=== PATIENT | male | born 1980 | race Caucasian/White ===

== ENCOUNTER 2018-09-13 18:22 | Observation (INO) | payer BC, MEDICAID, OTHER ==
[2018-09-13] MEDS ORDERED: Sodium Chloride 0.9% 1,000 ML IV ONE (18:53)
[2018-09-13 19:39] LABS: BICARBONATE,ARTERIAL 27.6 mm/L (22.0-26.0); O2 DELIVERY DEVICE ROOM AIR; O2 SATURATION ARTERIAL 94 % (95-98); PCO2 ARTERIAL 38 mm/Hg0 (35-45); PO2 ARTERIAL 68 mm/Hg (80-100)
--- NOTE | 2018-09-13 19:52 | EDM.PDOC ---
ED HPI GENERAL MEDICAL PROBLEM - General Chief Complaint: Neurological Problem Stated Complaint: lethargic Time Seen by Provider: 09/13/18 18:37 Source of Information: Reports: Patient, EMS, Family History Limitations: Reports: Altered Mental Status - History of Present Illness INITIAL COMMENTS - FREE TEXT/NARRATIVE: Jaswant is a 37 year old male with PMH of type II DM, esophagel varices, depression, and ETOH addiction, who presents to the ED via [facility] with c/o AMS. Girlfriend reports he was recently discharged from [facility] in [place] for ETOH abuse on . She reports the past 3 days, other than today, he has drank 1.75 L whiskey. She reports he has been doing this for some time now. She reports that today he did not have anything to drink per her knowledge. Report throughout the morning he was more with it, able to tell them his insulin dosing, and then this evening he just became more lethargic and not acting like himself so they called EMS. They report he was eating and drinking fine today and had no other symptoms. EMS reports upon arrival he was sitting up in a chair. Blood sugar was elevated in upper 300's. Girlfriend reports he has had two doses of insulin today, but unsure on how many units. Girlfriend reports no drug use. They have been present with him throughout the evening. Deny any seizure activity. Upon arrival to ED, patient does arouse to voice. When asked questions he answers yes to every question and then goes back to sleep. GCS 13. He is maintaining O2 sats on RA. VSS. Unable to obtain ROS. Onset: Today, Gradual Associated Symptoms: Reports: Weakness. Denies: Cough, Diaphoresis, Fever/ Chills, Nausea/Vomiting - Related Data Allergies Allergy/AdvReac Type Severity Reaction Status Date / Time No Known Allergies Allergy Verified 09/13/18 19:33 Home Meds: Home Meds FLUoxetine HCl [Fluoxetine HCl] 20 mg PO DAILY 09/13/18 [History] Insulin Glargine,Hum.Rec.Anlog [Basaglar Kwikpen U-100] 0 unit SQ ASDIRECTED [History] Insulin Lispro [Humalog Kwikpen U-100] 0 unit SQ ASDIRECTED 09/13/18 [History] Levomefolate/B6/B12/Algal Oil [l-Methylfolate Ca P-5-P Me-Cbl] 1 tab PO BID [History] Magnesium Chloride [Mag-64] 128 mg PO BID 09/13/18 [History] Multivit-Min/Iron Fum/Folic AC [Mpovj-Yyyhtgs-Tdhnvhlv Tablet] 1 tab PO DAILY [History] Naltrexone 50 mg PO DAILY 09/13/18 [History] Pantoprazole Sodium [Protonix] 40 mg PO DAILY 09/13/18 [History] QUEtiapine Fumarate [Seroquel] 300 mg PO BEDTIME 09/13/18 [History] Ranitidine HCl [Zantac 75] 75 mg PO DAILY PRN 09/13/18 [History] Thiamine [Vitamin B-1] 100 mg PO BID 09/13/18 [History] atorvaSTATin Calcium [Atorvastatin Calcium] 20 mg PO BEDTIME 09/13/18 [History] guanFACINE 1 mg PO BEDTIME 09/13/18 [History] metFORMIN [Glucophage] 500 mg PO BID 09/13/18 [History] Past Medical History - Past Health History Medical/Surgical History: Denies Medical/Surgical History Cardiovascular History: Reports: Hypertension Other Cardiovascular History: not currently taking any meds for HTN Gastrointestinal History: Reports: GERD Genitourinary History: Reports: Chronic Renal Insuffiency Musculoskeletal History: Reports: Fracture Neurological History: Reports: Concussion, Seizure Other Neuro History: Withdrawal seizures Psychiatric History: Reports: Addiction, Depression, Suicide Attempt, Suicidal Ideation Other Psychiatric History: ETOH addiction Endocrine/Metabolic History: Reports: Diabetes, Type II Other Endocrine/Metabolic History: States he was on insulin for a while, stopped taking insulin in April of 2018 and has been watching his diet closely since Oncologic (Cancer) History: Reports: None - Infectious Disease History Infectious Disease History: Reports: Chicken Pox - Past Surgical History Cardiovascular Surgical History: Reports: None GI Surgical History: Reports: Appendectomy, Cholecystectomy Endocrine Surgical History: Reports: None Neurological Surgical History: Reports: None Musculoskeletal Surgical History: Reports: Shoulder Surgery, Other (See Below) Other Musculoskeletal Surgeries/Procedures:: Right foot and left shoulder Social & Family History - Family History Family Medical History: Noncontributory - Tobacco Use Smoking Status *Q: Unknown Ever Smoked - Caffeine Use Caffeine Use: Reports: Tea - Alcohol Use Days Per Week of Alcohol Use: 4 Number of Drinks Per Day: 1 Total Drinks Per Week: 4 Date of Last Drink: 09/12/18 Time of Last Drink: 22:30 - Recreational Drug Use Recreational Drug Use: No ED ROS GENERAL - Review of Systems Review Of Systems: Unable To Obtain - Physical Exam Exam: See Below Exam Limited By: Altered Mental Status General Appearance: WD/WN, No Apparent Distress, Obtunded Eye Exam: Bilateral Eye: EOMI, Normal Fundi, Normal Inspection, PERRL Ears: Normal External Exam, Normal Canal, Hearing Grossly Normal, Normal TMs Nose: Normal Inspection, Normal Mucosa, No Blood Throat/Mouth: Other (dry mucous membranes and lips) Head Exam: Atraumatic, Normocephalic Neck: Normal Inspection, Supple, Non-Tender Respiratory/Chest: No Respiratory Distress, Lungs Clear, Normal Breath Sounds, No Accessory Muscle Use, Chest Non-Tender Cardiovascular: Normal Peripheral Pulses, Regular Rate, Rhythm, No Edema, No Gallop, No JVD, No Murmur, No Rub GI/Abdominal: Normal Bowel Sounds, Soft, Non-Tender, No Organomegaly, No Distention, No Abnormal Bruit, No Mass Neuro Exam (Abbreviated): Unresponsive Back Exam: Normal Inspection Extremities: Normal Inspection, No Pedal Edema, Normal Capillary Refill Skin Exam: Warm, Dry, Intact, Rash (maculopapular rash to chest and arms) Course - Vital Signs Last Recorded V/S: Last Vital Signs Temp 98.2 F 09/14/18 00:00 Pulse 88 09/14/18 00:00 Resp 18 09/14/18 00:00 BP 142/66 H 09/14/18 00:00 Pulse Ox 98 09/14/18 00:00 - Orders/Labs/Meds Orders: Active Orders 24 hr Category Date Time Status Chest 1V Frontal [CR] Stat Exams 09/13/18 18:55 Taken Head wo Cont [CT] Stat Exams 09/13/18 18:55 Taken ETHANOL (MEDICAL) [REF] Stat Lab 09/13/18 19:08 Received Medication Orders Acetaminophen (Tylenol) 650 mg PO Q4H PRN PRN Reason: Pain (Mild 1-3)/fever Enoxaparin Sodium (Lovenox) 40 mg SUBCUT Q24H [facility] Last Admin: 09/13/18 21:03 Dose: 40 mg Fluoxetine HCl (Prozac) 20 mg PO DAILY [facility] Sodium Chloride (Normal Saline) 1,000 mls @ 125 mls/hr IV ASDIRECTED GRAEME Last Admin: 09/13/18 21:07 Dose: 125 mls/hr Insulin Aspart (Novolog) 0 unit SUBCUT WITHMEALSANDBED GRAEME; Protocol Non-Formulary Medication (Guanfacine [Guanfacine]) 1 mg PO BEDTIME GRAEME Non-Formulary Medication (Quetiapine Fumarate [Seroquel]) 300 mg PO BEDTIME GRAEME Pantoprazole Sodium (Protonix Iv) 40 mg IVPUSH Q24H GRAEME Last Admin: 09/13/18 21:01 Dose: 40 mg Thiamine HCl (Vitamin B-1) 100 mg PO BID [facility] Labs: Laboratory Tests 09/13/18 09/13/18 09/13/18 Range/Units 18:33 18:33 18:33 WBC 5.5 (5.0-10.0) 10^3/uL RBC 4.47 L (4.50-6.00) 10^6/uL Hgb 13.3 L (14.0-18.0) g/dL Hct 37.4 L (40.0-54.0) % MCV 83.7 (82.0-94.0) fL MCH 29.8 (27.0-32.0) pg MCHC 35.6 (33.0-38.0) g/dL RDW Coeff of Jarret 14.5 (11.0-15.0) % Plt Count 221 (150-400) 10^3/uL Neut % (Auto) 46.1 (35-85) % Lymph % (Auto) 43.0 (10-55) % [place] % (Auto) 7.7 (0-16) % Eos % (Auto) 2.7 (0-5) % Baso % (Auto) 0.5 (0-3) % Neut # (Auto) 2.53 (1.80-7.00) 10^3/uL Lymph # (Auto) 2.36 (1.00-4.80) 10^3/uL [place] # (Auto) 0.42 (0.00-0.80) 10^3/uL Eos # (Auto) 0.15 (0.00-0.45) 10^3/uL Baso # (Auto) 0.03 10^3/uL ABG pH (7.35-7.45) ABG pCO2 (35-45) mm/Hg0 ABG pO2 (80-100) mm/Hg ABG HCO3 (22.0-26.0) mm/L ABG O2 Saturation (95-98) % ABG Base Excess (-2.0-3.0) O2 Delivery Device Sodium 139 (136-145) mEq/L Potassium 3.8 (3.5-5.0) mEq/L Chloride 100 (98-106) mEq/L Carbon Dioxide 26 (21-32) mmol/L BUN 12 (7-18) mg/dL Creatinine 1.4 H (0.7-1.3) mg/dL Est Cr Clr Drug Dosing 80.06 mL/min Estimated GFR (MDRD) 57 L (>=60) mL/min Glucose 283 H (75-99) mg/dL Calcium 8.2 L (8.4-10.1) mg/dL Total Bilirubin 0.3 (0.0-1.0) mg/dL AST 62 H (15-37) U/L ALT 89 H (12-78) U/L Alkaline Phosphatase 128 H (46-116) U/L C-Reactive Protein 0.4 (0.2-0.8) mg/dL Total Protein 7.2 (6.4-8.2) g/dL Albumin 3.6 (3.4-5.0) g/dL Urine Color Yellow (YELLOW) Urine Appearance Clear (CLEAR) Urine pH 5.5 (4.5-8.0) Ur Specific [place] 1.020 (1.003-1.020) Urine Protein Negative (NEGATIVE) mg/dL Urine Glucose (UA) 500 H (NEGATIVE) mg/dL Urine Ketones Negative (NEGATIVE) mg/dL Urine Occult Blood Negative (NEGATIVE) Urine Nitrite Negative (NEGATIVE) Urine Bilirubin Negative (NEGATIVE) Urine Urobilinogen 0.2 (0.2-1.0) EU/dL Ur Leukocyte Esterase Negative (NEGATIVE) Urine RBC Not seen (0-5) /HPF Urine WBC Not seen (0-5) /HPF Urine Opiates Screen (NEGATIVE) Ur Oxycodone Screen (NEGATIVE) Urine Methadone Screen (NEGATIVE) Ur Barbiturates Screen (NEGATIVE) U Tricyclic Antidepress (NEGATIVE) Ur Phencyclidine Scrn (NEGATIVE) Ur Amphetamine Screen (NEGATIVE) U Methamphetamines Scrn (NEGATIVE) Urine MDMA Screen (NEGATIVE) U Benzodiazepines Scrn (NEGATIVE) Urine Cocaine Screen (NEGATIVE) U Marijuana (THC) Screen (NEGATIVE) 09/13/18 09/13/18 Range/Units 18:41 19:17 WBC (5.0-10.0) 10^3/uL RBC (4.50-6.00) 10^6/uL Hgb (14.0-18.0) g/dL Hct (40.0-54.0) % MCV (82.0-94.0) fL MCH (27.0-32.0) pg MCHC (33.0-38.0) g/dL RDW Coeff of Jarret (11.0-15.0) % Plt Count (150-400) 10^3/uL Neut % (Auto) (35-85) % Lymph % (Auto) (10-55) % [place] % (Auto) (0-16) % Eos % (Auto) (0-5) % Baso % (Auto) (0-3) % Neut # (Auto) (1.80-7.00) 10^3/uL Lymph # (Auto) (1.00-4.80) 10^3/uL [place] # (Auto) (0.00-0.80) 10^3/uL Eos # (Auto) (0.00-0.45) 10^3/uL Baso # (Auto) 10^3/uL ABG pH 7.47 H (7.35-7.45) ABG pCO2 38 (35-45) mm/Hg0 ABG pO2 68 L (80-100) mm/Hg ABG HCO3 27.6 H (22.0-26.0) mm/L ABG O2 Saturation 94 L (95-98) % ABG Base Excess 4.0 H (-2.0-3.0) O2 Delivery Device Room air Sodium (136-145) mEq/L Potassium (3.5-5.0) mEq/L Chloride (98-106) mEq/L Carbon Dioxide (21-32) mmol/L BUN (7-18) mg/dL Creatinine (0.7-1.3) mg/dL Est Cr Clr Drug Dosing mL/min Estimated GFR (MDRD) (>=60) mL/min Glucose (75-99) mg/dL Calcium (8.4-10.1) mg/dL Total Bilirubin (0.0-1.0) mg/dL AST (15-37) U/L ALT (12-78) U/L Alkaline Phosphatase (46-116) U/L C-Reactive Protein (0.2-0.8) mg/dL Total Protein (6.4-8.2) g/dL Albumin (3.4-5.0) g/dL Urine Color (YELLOW) Urine Appearance (CLEAR) Urine pH (4.5-8.0) Ur Specific [place] (1.003-1.020) Urine Protein (NEGATIVE) mg/dL Urine Glucose (UA) (NEGATIVE) mg/dL Urine Ketones (NEGATIVE) mg/dL Urine Occult Blood (NEGATIVE) Urine Nitrite (NEGATIVE) Urine Bilirubin (NEGATIVE) Urine Urobilinogen (0.2-1.0) EU/dL Ur Leukocyte Esterase (NEGATIVE) Urine RBC (0-5) /HPF Urine WBC (0-5) /HPF Urine Opiates Screen Negative (NEGATIVE) Ur Oxycodone Screen Negative (NEGATIVE) Urine Methadone Screen Negative (NEGATIVE) Ur Barbiturates Screen Negative (NEGATIVE) U Tricyclic Antidepress Negative (NEGATIVE) Ur Phencyclidine Scrn Negative (NEGATIVE) Ur Amphetamine Screen Negative (NEGATIVE) U Methamphetamines Scrn Negative (NEGATIVE) Urine MDMA Screen Negative (NEGATIVE) U Benzodiazepines Scrn Negative (NEGATIVE) Urine Cocaine Screen Negative (NEGATIVE) U Marijuana (THC) Screen Negative (NEGATIVE) Meds: Medications Generic Name Dose Route Start Last Admin Trade Name Freq PRN Reason Stop Dose Admin Acetaminophen 650 mg 09/13/18 20:49 Tylenol PO Q4H PRN Pain (Mild 1-3)/fever Enoxaparin Sodium 40 mg 09/13/18 21:00 09/13/18 21:03 Lovenox SUBCUT 40 mg Q24H GRAEME Administration Fluoxetine HCl 20 mg 09/14/18 08:00 Prozac PO DAILY GRAEME Sodium Chloride 1,000 mls @ 125 mls/hr 09/13/18 20:49 09/13/18 21:07 Normal Saline IV 125 mls/hr ASDIRECTED GRAEME Administration Insulin Aspart 0 unit 09/14/18 08:00 Novolog SUBCUT WITHMEALSANDBED GRAEME Protocol Non-Formulary Medication 1 mg 09/14/18 20:00 Guanfacine [Guanfacine] PO BEDTIME GRAEME Non-Formulary Medication 300 mg 09/14/18 20:00 Quetiapine Fumarate [Seroquel] PO BEDTIME GRAEME Pantoprazole Sodium 40 mg 09/13/18 21:00 09/13/18 21:01 Protonix Iv IVPUSH 40 mg Q24H GRAEME Administration Thiamine HCl 100 mg 09/14/18 08:00 Vitamin B-1 PO BID GRAEME Discontinued Medications Generic Name Dose Route Start Last Admin Trade Name Heribertoq PRN Reason Stop Dose Admin Sodium Chloride 1,000 mls @ 999 mls/hr 09/13/18 18:53 09/13/18 19:37 Normal Saline IV 09/13/18 19:53 999 mls/hr .BOLUS ONE Administration Thiamine HCl 100 mg/ Sodium 101 mls @ 202 mls/hr 09/13/18 20:49 09/13/18 21: 01 Chloride IV 09/13/18 20:50 202 mls/hr ONETIME ONE Administration - Re-Assessments/Exams Free Text/Narrative Re-Assessment/Exam: Discussed lab, xray, and CT findings with patient's girlfriend. Departure - Departure Time of Disposition: 19:52 Disposition: Refer to Observation Condition: Fair Clinical Impression: Altered mental status Qualifiers: Altered mental status type: somnolence Qualified Code(s): R40.0 - Somnolence Alcoholic intoxication Qualifiers: Complication of substance-induced condition: with delirium Qualified Code(s): F10.921 - Alcohol use, unspecified with intoxication delirium Type 2 diabetes mellitus Qualifiers: Diabetes mellitus intermodal truck driver insulin use: with intermodal truck driver use Diabetes mellitus complication status: with hyperglycemia Qualified Code(s): E11.65 - Type 2 diabetes mellitus with hyperglycemia - Discharge Information *PRESCRIPTION DRUG MONITORING PROGRAM REVIEWED*: Not Applicable *COPY OF PRESCRIPTION DRUG MONITORING REPORT IN PATIENT MILLER: Not Applicable - Problem List & Annotations (1) Altered mental status SNOMED Code(s): 710239869 Code(s): R41.82 - ALTERED MENTAL STATUS, UNSPECIFIED Status: Acute Current Visit: Yes Qualifiers: Altered mental status type: somnolence Qualified Code(s): R40.0 - Somnolence (2) Alcoholic intoxication SNOMED Code(s): 68494828 Code(s): F10.929 - ALCOHOL USE, UNSPECIFIED WITH INTOXICATION, UNSPECIFIED Status: Acute Current Visit: Yes Qualifiers: Complication of substance-induced condition: with delirium Qualified Code(s ): F10.921 - Alcohol use, unspecified with intoxication delirium (3) Type 2 diabetes mellitus SNOMED Code(s): 86440038 Code(s): E11.9 - TYPE 2 DIABETES MELLITUS WITHOUT COMPLICATIONS Status: Acute Current Visit: Yes Qualifiers: Diabetes mellitus residential insulin use: with residential use Diabetes mellitus complication status: with hyperglycemia Qualified Code(s): E11.65 - Type 2 diabetes mellitus with hyperglycemia; Z79.4 - alf (current) use of insulin (4) Renal insufficiency SNOMED Code(s): 093129304, 179174326 Code(s): N28.9 - DISORDER OF KIDNEY AND URETER, UNSPECIFIED Status: Acute Current Visit: No - Problem List Review Problem List Initiated/Reviewed/Updated: Yes - My Orders Last 24 Hours: My Active Orders 09/13/18 18:55 Chest 1V Frontal [CR] Stat Head wo Cont [CT] Stat 09/13/18 19:08 ETHANOL (MEDICAL) [REF] Stat - Assessment/Plan Admission H&P: Please use this note as an admission H&P Last 24 Hours: My Active Orders 09/13/18 18:55 Chest 1V Frontal [CR] Stat Head wo Cont [CT] Stat 09/13/18 19:08 ETHANOL (MEDICAL) [REF] Stat Plan: Admit to observation with cardiac monitoring. Do not have ETOH level back, as this is a send out lab for us. I suspect patient is intoxicated. He does have strong odor of alcohol on him. He does arouse to verbal stimuli and answers yes/ no to questions. Girlfriend reports he drinks 1.75 L whiskey daily. Creatinine elevated to 1.4. Glucose is 283. ABG shows no acidosis, elevated bicarb. Urine negative for ketones. Liver enzymes are elevated. AST 62. ALT 89. UA negative except 500 glucose. Drug screen is negative. Head CT and CXR negative for acute processes. Will give one dose thiamine. Start IVF. I anticipate patients mental status will improve once he is no longer intoxicated. Patient will likely need to return for continued ETOH treatment once sober. Patient's girlfriend voiced understanding. Patient transferred to floor in satisfactory condition.
[2018-09-13] MEDS ORDERED: Acetaminophen 325 MG Tab PO PRN (20:49)
[2018-09-13] MEDS ORDERED: Thiamine 100 MG in Sodium Chloride 0.9% 100 ML IV ONE (20:49)
[2018-09-13] MEDS: Pantoprazole 40 MG Vial IVPUSH SCH (21:01)
[2018-09-13] MEDS: Enoxaparin 40 MG/0.4 ML Syringe SUBCUT SCH (21:03)
[2018-09-13] MEDS: Sodium Chloride 0.9% 1,000 ML IV SCH (21:07)
[2018-09-14] MEDS: Sodium Chloride 0.9% 1,000 ML IV SCH ×3 (04:10→21:13)
[2018-09-14] MEDS: THIAMINE 100 MG PO SCH ×2 (08:49→21:06)
[2018-09-14] MEDS: FLUOXETINE 20 MG PO SCH (08:50)
[2018-09-14] MEDS: Insulin Aspart 100 Units/ML 3 ML Pen SUBCUT SCH ×4 (08:50→21:10)
[2018-09-14] MEDS ORDERED: Nicotine 14 MG/24 Hr Patch TRDERM ONE (15:51)
[2018-09-14] MEDS: LORazepam 0.5 MG Tab PO PRN (18:13)
--- NOTE | 2018-09-14 19:30 | PCM.PN ---
- General Info Date of Service: 09/14/18 Admission Dx/Problem (Free Text): Altered Mental Status Alcohol Intoxication Functional Status: Reports: Pain Controlled, Ambulating. Denies: Tolerating Diet - Review of Systems General: Denies: Fever, Weakness, Fatigue, Malaise HEENT: Reports: No Symptoms Pulmonary: Denies: Shortness of Breath, Cough Cardiovascular: Denies: Chest Pain, Edema, Lightheadedness Gastrointestinal: Reports: Decreased Appetite, Nausea. Denies: Abdominal Pain, Vomiting Genitourinary: Reports: No Symptoms Musculoskeletal: Reports: No Symptoms Skin: Reports: No Symptoms Neurological: Denies: Confusion, Headache Psychiatric: Reports: Anxiety - Patient Data Vitals - Most Recent: Last Vital Signs Temp 99 F 09/14/18 16:00 Pulse 98 09/14/18 16:00 Resp 20 09/14/18 16:00 BP 152/98 H 09/14/18 16:00 Pulse Ox 97 09/14/18 16:00 Weight - Most Recent: 240 lb I&O - Last 24 Hours: Intake & Output 09/14/18 09/14/18 09/14/18 06:59 14:59 22:59 Intake Total 881 1000 Balance 881 1000 Lab Results Last 24 Hours: Laboratory Results - last 24 hr 09/13/18 09/14/18 09/14/18 Range/Units 19:17 04:08 06:45 WBC 8.1 (5.0-10.0) 10^3/uL RBC 4.33 L (4.50-6.00) 10^6/uL Hgb 12.8 L (14.0-18.0) g/dL Hct 37.1 L (40.0-54.0) % MCV 85.7 (82.0-94.0) fL MCH 29.6 (27.0-32.0) pg MCHC 34.5 (33.0-38.0) g/dL RDW Coeff of Jarret 14.4 (11.0-15.0) % Plt Count 241 (150-400) 10^3/uL Neut % (Auto) 71.1 (35-85) % Lymph % (Auto) 20.8 (10-55) % [place] % (Auto) 6.0 (0-16) % Eos % (Auto) 1.7 (0-5) % Baso % (Auto) 0.4 (0-3) % Neut # (Auto) 5.76 (1.80-7.00) 10^3/uL Lymph # (Auto) 1.69 (1.00-4.80) 10^3/uL [place] # (Auto) 0.49 (0.00-0.80) 10^3/uL Eos # (Auto) 0.14 (0.00-0.45) 10^3/uL Baso # (Auto) 0.03 10^3/uL ABG pH 7.47 H (7.35-7.45) ABG pCO2 38 (35-45) mm/Hg0 ABG pO2 68 L (80-100) mm/Hg ABG HCO3 27.6 H (22.0-26.0) mm/L ABG O2 Saturation 94 L (95-98) % ABG Base Excess 4.0 H (-2.0-3.0) O2 Delivery Device Room air Sodium (136-145) mEq/L Potassium (3.5-5.0) mEq/L Chloride (98-106) mEq/L Carbon Dioxide (21-32) mmol/L BUN (7-18) mg/dL Creatinine (0.7-1.3) mg/dL Est Cr Clr Drug Dosing mL/min Estimated GFR (MDRD) (>=60) mL/min Glucose (75-99) mg/dL POC Glucose 160 H (75-105) mg/dl Calcium (8.4-10.1) mg/dL Total Bilirubin (0.0-1.0) mg/dL AST (15-37) U/L ALT (12-78) U/L Alkaline Phosphatase (46-116) U/L Total Protein (6.4-8.2) g/dL Albumin (3.4-5.0) g/dL 09/14/18 09/14/18 09/14/18 Range/Units 06:45 07:23 12:34 WBC (5.0-10.0) 10^3/uL RBC (4.50-6.00) 10^6/uL Hgb (14.0-18.0) g/dL Hct (40.0-54.0) % MCV (82.0-94.0) fL MCH (27.0-32.0) pg MCHC (33.0-38.0) g/dL RDW Coeff of Jarret (11.0-15.0) % Plt Count (150-400) 10^3/uL Neut % (Auto) (35-85) % Lymph % (Auto) (10-55) % [place] % (Auto) (0-16) % Eos % (Auto) (0-5) % Baso % (Auto) (0-3) % Neut # (Auto) (1.80-7.00) 10^3/uL Lymph # (Auto) (1.00-4.80) 10^3/uL [place] # (Auto) (0.00-0.80) 10^3/uL Eos # (Auto) (0.00-0.45) 10^3/uL Baso # (Auto) 10^3/uL ABG pH (7.35-7.45) ABG pCO2 (35-45) mm/Hg0 ABG pO2 (80-100) mm/Hg ABG HCO3 (22.0-26.0) mm/L ABG O2 Saturation (95-98) % ABG Base Excess (-2.0-3.0) O2 Delivery Device Sodium 139 (136-145) mEq/L Potassium 3.9 (3.5-5.0) mEq/L Chloride 103 (98-106) mEq/L Carbon Dioxide 26 (21-32) mmol/L BUN 10 (7-18) mg/dL Creatinine 2.2 H D (0.7-1.3) mg/dL Est Cr Clr Drug Dosing 53.97 mL/min Estimated GFR (MDRD) 34 L (>=60) mL/min Glucose 185 H D (75-99) mg/dL POC Glucose 171 H 197 H (75-105) mg/dl Calcium 7.9 L (8.4-10.1) mg/dL Total Bilirubin 0.4 (0.0-1.0) mg/dL AST 44 H (15-37) U/L ALT 76 (12-78) U/L Alkaline Phosphatase 116 (46-116) U/L Total Protein 6.7 (6.4-8.2) g/dL Albumin 3.3 L (3.4-5.0) g/dL 10/22/18 Range/Units 17:28 WBC (5.0-10.0) 10^3/uL RBC (4.50-6.00) 10^6/uL Hgb (14.0-18.0) g/dL Hct (40.0-54.0) % MCV (82.0-94.0) fL MCH (27.0-32.0) pg MCHC (33.0-38.0) g/dL RDW Coeff of Jarret (11.0-15.0) % Plt Count (150-400) 10^3/uL Neut % (Auto) (35-85) % Lymph % (Auto) (10-55) % [place] % (Auto) (0-16) % Eos % (Auto) (0-5) % Baso % (Auto) (0-3) % Neut # (Auto) (1.80-7.00) 10^3/uL Lymph # (Auto) (1.00-4.80) 10^3/uL [place] # (Auto) (0.00-0.80) 10^3/uL Eos # (Auto) (0.00-0.45) 10^3/uL Baso # (Auto) 10^3/uL ABG pH (7.35-7.45) ABG pCO2 (35-45) mm/Hg0 ABG pO2 (80-100) mm/Hg ABG HCO3 (22.0-26.0) mm/L ABG O2 Saturation (95-98) % ABG Base Excess (-2.0-3.0) O2 Delivery Device Sodium (136-145) mEq/L Potassium (3.5-5.0) mEq/L Chloride (98-106) mEq/L Carbon Dioxide (21-32) mmol/L BUN (7-18) mg/dL Creatinine (0.7-1.3) mg/dL Est Cr Clr Drug Dosing mL/min Estimated GFR (MDRD) (>=60) mL/min Glucose (75-99) mg/dL POC Glucose 170 H (75-105) mg/dl Calcium (8.4-10.1) mg/dL Total Bilirubin (0.0-1.0) mg/dL AST (15-37) U/L ALT (12-78) U/L Alkaline Phosphatase (46-116) U/L Total Protein (6.4-8.2) g/dL Albumin (3.4-5.0) g/dL Med Orders - Current: Current Medications Acetaminophen (Tylenol) 650 mg PO Q4H PRN PRN Reason: Pain (Mild 1-3)/fever Enoxaparin Sodium (Lovenox) 40 mg SUBCUT Q24H [facility] Last Admin: 09/13/18 21:03 Dose: 40 mg Fluoxetine HCl (Prozac) 20 mg PO DAILY [facility] Last Admin: 09/14/18 08:50 Dose: 20 mg Sodium Chloride (Normal Saline) 1,000 mls @ 125 mls/hr IV ASDIRECTED [facility] Last Admin: 09/14/18 14:17 Dose: 125 mls/hr Insulin Aspart (Novolog) 0 unit SUBCUT WITHMEALSANDBED [facility]; Protocol Last Admin: 09/14/18 18:12 Dose: 3 units Lorazepam (Ativan) 1 mg PO Q8H PRN PRN Reason: Agitation Last Admin: 09/14/18 18:13 Dose: 1 mg Ptom Guanfacine ([Guanfacine] 1 Mg) 1 mg PO BEDTIME [facility] Ptom Quetiapine Fumarate [Seroquel] 300 Mg 300 mg PO BEDTIME [facility] Pantoprazole Sodium (Protonix Iv) 40 mg IVPUSH Q24H [facility] Last Admin: 09/13/18 21:01 Dose: 40 mg Thiamine HCl (Vitamin B-1) 100 mg PO BID [facility] Last Admin: 09/14/18 08:49 Dose: 100 mg Discontinued Medications Sodium Chloride (Normal Saline) 1,000 mls @ 999 mls/hr IV .BOLUS ONE Stop: 09/13/18 19:53 Last Admin: 09/13/18 19:37 Dose: 999 mls/hr Thiamine HCl 100 mg/ Sodium (Chloride) 101 mls @ 202 mls/hr IV ONETIME ONE Stop: 09/13/18 20:50 Last Admin: 09/13/18 21:01 Dose: 202 mls/hr Nicotine (Habitrol) 14 mg TRDERM ONETIME ONE Stop: 09/14/18 15:52 Last Admin: 09/14/18 16:45 Dose: 14 mg - Exam General: Alert, Oriented, Cooperative HEENT: Mucous Membr. Moist/[place] Neck: Supple Lungs: Clear to Auscultation, Normal Respiratory Effort Cardiovascular: Regular Rate, Regular Rhythm GI/Abdominal Exam: Normal Bowel Sounds, Soft, Non-Tender Extremities: Normal Inspection, No Pedal Edema Skin: Warm, Dry Neurological: No New Focal Deficit Psy/Mental Status: Anxious - Problem List & Annotations (1) Alcoholic intoxication SNOMED Code(s): 49391653 Code(s): F10.929 - ALCOHOL USE, UNSPECIFIED WITH INTOXICATION, UNSPECIFIED Status: Acute Priority: High Current Visit: Yes Qualifiers: Complication of substance-induced condition: with delirium Qualified Code(s ): F10.921 - Alcohol use, unspecified with intoxication delirium (2) Altered mental status SNOMED Code(s): 680509724 Code(s): R41.82 - ALTERED MENTAL STATUS, UNSPECIFIED Status: Acute Priority: High Current Visit: Yes Qualifiers: Altered mental status type: somnolence Qualified Code(s): R40.0 - Somnolence (3) Type 2 diabetes mellitus SNOMED Code(s): 40166331 Code(s): E11.9 - TYPE 2 DIABETES MELLITUS WITHOUT COMPLICATIONS Status: Acute Priority: High Current Visit: Yes Qualifiers: Diabetes mellitus senior care insulin use: with terminal worker use Diabetes mellitus complication status: with hyperglycemia Qualified Code(s): E11.65 - Type 2 diabetes mellitus with hyperglycemia; Z79.4 - manager long term care (current) use of insulin - Problem List Review Problem List Initiated/Reviewed/Updated: Yes - My Orders Last 24 Hours: My Active Orders 09/14/18 17:47 LORazepam [Ativan] 1 mg PO Q8H PRN 09/15/18 05:11 BASIC METABOLIC PANEL,BMP [CHEM] AM - Assessment Assessment:: Altered Mental Status Alcohol Intoxication - Plan Plan:: Patient alert, oriented and cooperative this am. Denies any pain. Admits to no appetite, hasn't been able to eat as of late. Does admit that after leaving treatment and resuming use of alcohol, has not been able to eat. He admits to intermittent nausea. No vomiting. Blood sugars running lower as a result, no insulin has been given today. Patient does discuss his need for recovery, well aware of it altering his life at this point. Has attended AA in the past. Does feel anxious. Creatinine today increased to 2.2 despite IV fluids overnight. Will continue IV fluids. Advised patient need to rehydrate/increase oral intake , use Zofran as needed for this. Repeat labs in am. Use Ativan as needed for DTs, anxiety. If labs improve, will discharge home in am.
[2018-09-14] MEDS ORDERED: QUETIAPINE FUMARATE 300 MG PO SCH (20:00)
[2018-09-14] MEDS ORDERED: GUANFACINE 1 MG PO SCH (20:00)
[2018-09-14] MEDS: Enoxaparin 40 MG/0.4 ML Syringe SUBCUT SCH (21:06)
[2018-09-14] MEDS: Pantoprazole 40 MG Vial IVPUSH SCH (21:10)
[2018-09-15] MEDS: Sodium Chloride 0.9% 1,000 ML IV SCH (05:20)
[2018-09-15 07:42] VITALS: BP 139/96
[2018-09-15] MEDS: THIAMINE 100 MG PO SCH (07:53)
[2018-09-15] MEDS: FLUOXETINE 20 MG PO SCH (07:53)
[2018-09-15] MEDS: LORazepam 0.5 MG Tab PO PRN (07:56)
[2018-09-15] MEDS: Insulin Aspart 100 Units/ML 3 ML Pen SUBCUT SCH (07:58)
--- NOTE | 2018-09-15 20:35 | PCM.DCSUM1 ---
Discharge Summary - Hospital Course Free Text/Narrative:: Patient presented to ER per [facility] with altered mental status, alcohol abuse. He had only been out of treatment for 3 days for alcoholism but had returned to drinking immediately upon discharge. Admitted to consuming 1.75 L of whiskey per day. He has a history of Type 2 DM, esophageal varices, depression and ETOH addition. On day of presentation to ER, friends did not feel he had consumed any alcohol so were concerned of his mental status. Had not been eating all that well yet taking his insulin. Blood sugar however was in the 300s. Oxygen sats stable. Blood pressure stable. GCS 13. Difficult to arouse. Creatinine elevated so admitted for IV fluids. Diagnosis: Stroke: No Modified [place] Scale: No Symptoms at All Modified [place] Scale Score: 0 - Discharge Data Discharge Date: 09/15/18 Discharge Disposition: Home, Self-Care 01 Condition: Fair - Discharge Diagnosis/Problem(s) (1) Alcoholic intoxication SNOMED Code(s): 33614355 ICD Code: F10.929 - ALCOHOL USE, UNSPECIFIED WITH INTOXICATION, UNSPECIFIED Status: Acute Priority: High Qualifiers: Complication of substance-induced condition: with delirium Qualified Code(s ): F10.921 - Alcohol use, unspecified with intoxication delirium (2) Altered mental status SNOMED Code(s): 280574459 ICD Code: R41.82 - ALTERED MENTAL STATUS, UNSPECIFIED Status: Acute Priority: High Qualifiers: Altered mental status type: somnolence Qualified Code(s): R40.0 - Somnolence (3) Type 2 diabetes mellitus SNOMED Code(s): 30579143 ICD Code: E11.9 - TYPE 2 DIABETES MELLITUS WITHOUT COMPLICATIONS Status: Acute Priority: High Qualifiers: Diabetes mellitus termite control servicer insulin use: with termite control servicer use Diabetes mellitus complication status: with hyperglycemia Qualified Code(s): E11.65 - Type 2 diabetes mellitus with hyperglycemia; Z79.4 - long term care social worker (current) use of insulin - Patient Summary/Data Complications: none Hospital Course: Patient is doing better today. On day 1, more alert. Conversive. Discussed alcoholism and need for treatment. Friends concerned and plan to have him be admitted to [facility] tomorrow. He has been anxious at times, controlled with Ativan. Creatinine was high yesterday at 2.2, improved to 1.7 today with IV fluids. Appetite has been poor. Blood sugars running around 170- 200. Up and ambulating about. Discharge home with family. - Patient Instructions Diet: Usual Diet as Tolerated Activity: As Tolerated - Discharge Plan *PRESCRIPTION DRUG MONITORING PROGRAM REVIEWED*: Not Applicable *COPY OF PRESCRIPTION DRUG MONITORING REPORT IN PATIENT MILLER: Not Applicable Home Medications: Home Meds FLUoxetine HCl [Fluoxetine HCl] 20 mg PO DAILY 09/13/18 [History] Insulin Glargine,Hum.Rec.Anlog [Basaglar Kwikpen U-100] 0 unit SQ ASDIRECTED [History] Insulin Lispro [Humalog Kwikpen U-100] 0 unit SQ ASDIRECTED 09/13/18 [History] Levomefolate/B6/B12/Algal Oil [l-Methylfolate Ca P-5-P Me-Cbl] 1 tab PO BID [History] Magnesium Chloride [Mag-64] 128 mg PO BID 09/13/18 [History] Multivit-Min/Iron Fum/Folic AC [Pcyzl-Vzzprqi-Zidbfclr Tablet] 1 tab PO DAILY [History] Naltrexone 50 mg PO DAILY 09/13/18 [History] Pantoprazole Sodium [Protonix] 40 mg PO DAILY 09/13/18 [History] QUEtiapine Fumarate [Seroquel] 300 mg PO BEDTIME 09/13/18 [History] Ranitidine HCl [Zantac 75] 75 mg PO DAILY PRN 09/13/18 [History] Thiamine [Vitamin B-1] 100 mg PO BID 09/13/18 [History] atorvaSTATin Calcium [Atorvastatin Calcium] 20 mg PO BEDTIME 09/13/18 [History] guanFACINE 1 mg PO BEDTIME 09/13/18 [History] metFORMIN [Glucophage] 500 mg PO BID 09/13/18 [History] Forms: ED Department Discharge Referrals: PCP,None [Primary Care Provider] - (Follow up with primary care provider as needed) - Discharge Summary/Plan Comment DC Time >30 min.: No Discharge Summary/Plan Comment: Discharge home with friends Plan for admission to [facility] tomorrow per friends. - General Info Date of Service: 09/15/18 Admission Dx/Problem (Free Text: Altered Mental Status Alcohol Intoxication Functional Status: Reports: Pain Controlled, Tolerating Diet, Ambulating - Review of Systems General: Reports: Fatigue. Denies: Fever, Weakness HEENT: Reports: No Symptoms Pulmonary: Denies: Shortness of Breath, Wheezing Cardiovascular: Denies: Chest Pain, Edema, Lightheadedness Gastrointestinal: Reports: Nausea. Denies: Abdominal Pain, Vomiting Genitourinary: Reports: No Symptoms Musculoskeletal: Reports: No Symptoms Skin: Reports: No Symptoms Neurological: Reports: No Symptoms Psychiatric: Reports: Anxiety - Patient Data Vitals - Most Recent: Last Vital Signs Temp 96.9 F 09/15/18 07:41 Pulse 87 09/15/18 07:41 Resp 20 09/15/18 07:41 BP 139/96 H 09/15/18 07:41 Pulse Ox 96 09/15/18 07:41 Weight - Most Recent: 240 lb I&O - Last 24 hours: Intake & Output 09/15/18 09/15/18 09/15/18 06:59 14:59 22:59 Intake Total 1000 Balance 1000 Lab Results - Last 24 hrs: Laboratory Results - last 24 hr 09/13/18 09/14/18 09/15/18 Range/Units 19:08 06:45 06:49 Sodium 135 L (136-145) mEq/L Potassium 3.6 (3.5-5.0) mEq/L Chloride 102 (98-106) mEq/L Carbon Dioxide 25 (21-32) mmol/L BUN 9 (7-18) mg/dL Creatinine 1.7 H (0.7-1.3) mg/dL Est Cr Clr Drug Dosing 69.84 mL/min Estimated GFR (MDRD) 46 L (>=60) mL/min Glucose 262 H D (75-99) mg/dL POC Glucose (75-105) mg/dl Serum Osmolality 325 H (275-295) mosm/kg Calcium 7.7 L (8.4-10.1) mg/dL Ethyl Alcohol 0.036 % W/V 09/15/18 Range/Units 07:39 Sodium (136-145) mEq/L Potassium (3.5-5.0) mEq/L Chloride (98-106) mEq/L Carbon Dioxide (21-32) mmol/L BUN (7-18) mg/dL Creatinine (0.7-1.3) mg/dL Est Cr Clr Drug Dosing mL/min Estimated GFR (MDRD) (>=60) mL/min Glucose (75-99) mg/dL POC Glucose 212 H (75-105) mg/dl Serum Osmolality (275-295) mosm/kg Calcium (8.4-10.1) mg/dL Ethyl Alcohol % W/V Med Orders - Current: Current Medications Discontinued Medications Acetaminophen (Tylenol) 650 mg PO Q4H PRN PRN Reason: Pain (Mild 1-3)/fever Enoxaparin Sodium (Lovenox) 40 mg SUBCUT Q24H [facility] Last Admin: 09/14/18 21:06 Dose: 40 mg Fluoxetine HCl (Prozac) 20 mg PO DAILY [facility] Last Admin: 09/15/18 07:53 Dose: 20 mg Sodium Chloride (Normal Saline) 1,000 mls @ 999 mls/hr IV .BOLUS ONE Stop: 09/13/18 19:53 Last Admin: 09/13/18 19:37 Dose: 999 mls/hr Sodium Chloride (Normal Saline) 1,000 mls @ 125 mls/hr IV ASDIRECTED [facility] Last Admin: 09/15/18 05:20 Dose: 125 mls/hr Thiamine HCl 100 mg/ Sodium (Chloride) 101 mls @ 202 mls/hr IV ONETIME ONE Stop: 09/13/18 20:50 Last Admin: 09/13/18 21:01 Dose: 202 mls/hr Insulin Aspart (Novolog) 0 unit SUBCUT WITHMEALSANDBED [facility]; Protocol Last Admin: 09/15/18 07:58 Dose: 6 units Lorazepam (Ativan) 1 mg PO Q8H PRN PRN Reason: Agitation Last Admin: 09/15/18 07:56 Dose: 1 mg Nicotine (Habitrol) 14 mg TRDERM ONETIME ONE Stop: 09/14/18 15:52 Last Admin: 09/14/18 16:45 Dose: 14 mg Ptom Guanfacine ([Guanfacine] 1 Mg) 1 mg PO BEDTIME [facility] Last Admin: 09/14/18 21:04 Dose: 1 mg Ptom Quetiapine Fumarate [Seroquel] 300 Mg 300 mg PO BEDTIME [facility] Last Admin: 09/14/18 21:05 Dose: 300 mg Pantoprazole Sodium (Protonix Iv) 40 mg IVPUSH Q24H [facility] Last Admin: 09/14/18 21:10 Dose: 40 mg Thiamine HCl (Vitamin B-1) 100 mg PO BID GRAEME Last Admin: 09/15/18 07:53 Dose: 100 mg - Exam General: Reports: Alert, Oriented HEENT: Reports: Mucous Membr. Moist/[place]ck: Reports: Supple Cardiovascular: Reports: Regular Rate, Regular Rhythm GI/Abdominal Exam: Normal Bowel Sounds, Soft, Non-Tender Extremities: Normal Inspection, No Pedal Edema Skin: Reports: Warm, Dry Neurological: Reports: No New Focal Deficit Psy/Mental Status: Reports: Anxious
== END 2018-09-15 11:20 | disposition home or self-care (01) ==
LOC: CC.ED 18:22 → CC.MS 20:01
PROVIDERS: ADMIT Nurse Practitioner Family; ATTEND Family Medicine
DX: F10.121 Alcohol abuse with intoxication delirium (principal); R41.82 Altered mental status, unspecified; I12.9 Hypertensive chronic kidney disease with stage 1 through stage 4 chronic kidney disease, or unspecified chronic kidney disease; E11.22 Type 2 diabetes mellitus with diabetic chronic kidney disease; N18.9 Chronic kidney disease, unspecified; E11.65 Type 2 diabetes mellitus with hyperglycemia; T14.91XA Suicide attempt, initial encounter; F32.9 Major depressive disorder, single episode, unspecified; Z79.4 Long term (current) use of insulin; Z79.899 Other long term (current) drug therapy; Y90.0 Blood alcohol level of less than 20 mg/100 ml
CPT/HCPCS: 36415; 36600; 70450; 71045; 80048; 80053; 80305; 81001; 82803; 82962; 83930; 85025; 86140; 96361; 96365; 96372; 96375; 96376; 99285; A9270; C9113; G0378; G0480; J1650; J1815; J3411; J7030; J7050

== ENCOUNTER 2018-09-15 17:18 | Emergency (ER) | payer MEDICAID ==
[2018-09-15] MEDS: Sodium Chloride 0.9% 1,000 ML IV SCH ×2 (17:38→21:42)
[2018-09-15] MEDS ORDERED: NS + KCl 20mEq/L 1,000 ML IV SCH (17:45)
[2018-09-15 17:52] LABS: CHLORIDE,CL 100 mEq/L (98-106); SODIUM,NA 137 mEq/L (136-145)
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
[2018-09-15 20:01] VITALS: BP 138/88
[2018-09-15] MEDS ORDERED: Ondansetron 4 MG/2 ML SDV IVPUSH STA (21:33)
== END 2018-09-15 23:58 ==
LOC: CC.ED 17:18
DX: F32.9 Major depressive disorder, single episode, unspecified (principal); F10.229 Alcohol dependence with intoxication, unspecified; R45.851 Suicidal ideations; I12.9 Hypertensive chronic kidney disease with stage 1 through stage 4 chronic kidney disease, or unspecified chronic kidney disease; N18.9 Chronic kidney disease, unspecified; E11.22 Type 2 diabetes mellitus with diabetic chronic kidney disease
CPT/HCPCS: 80053; 80305; 81001; 85025; 96361; 96374; 99285; J2405; J7030; 36415